=== PATIENT | female | born 1990 | race Caucasian/White ===

== ENCOUNTER 2018-02-01 22:11 | Emergency (ER) | payer OTHER ==
[2018-02-01 22:23] VITALS: BP 134/83; PULSE 80; TEMP 98; BMI 27.4
[2018-02-02] MEDS ORDERED: SODIUM CHLORIDE 1,000 ML IV ONE (00:06)
--- NOTE | 2018-02-02 00:17 | PDOC ---
History of Present Illness - General History Source: Patient Exam Limitations: No Limitations - History of Present Illness Initial Comments: 02/02/18 00:22 The patient is a 27 year old female, with a significant past medical history of back pain (s/p epidural during labor), who presents to the emergency department with diffuse numbness and paresthesias since approximately 03:00 yesterday morning. The patient reports sudden onset of numbness and tingling in her legs bilaterally that woke her up from sleep. Patient reports her paresthesias then became diffuse. She reports some chills, but denies any headache, fever, cough, or dizziness. She denies any chest pain, shortness of breath, diaphoresis, or palpitations. She denies abdominal pain, nausea, vomiting, diarrhea, or constipation. She denies any dysuria, hematuria, frequency, or urgency. She denies any recent changes in dietary habits(no fish), outdoor travel, allergies , control use, or sick contacts. Patient reports running on the treadmill for 45 minutes 3 days ago, which is not out of the ordinary for her. Allergies: NKDA Past Surgical History: None reported Social History: Non smoker. No ETOH or recreational drug use. <Radha Harris - Last Filed: 02/02/18 00:58> <Alphonso Christensen - Last Filed: 02/02/18 02:00> - General Chief Complaint: Pain Stated Complaint: NUMBNESS Time Seen by Provider: 02/01/18 22:26 Past History <Radha Harris - Last Filed: 02/02/18 00:58> - Suicide/Smoking/Psychosocial Hx Smoking History: Never smoked Have you smoked in the past 12 months: No Information on smoking cessation initiated: No Hx Alcohol Use: No Drug/Substance Use Hx: No <Alphonso Christensen - Last Filed: 02/02/18 02:00> - Past Medical History Allergies/Adverse Reactions: Allergies Allergy/AdvReac Type Severity Reaction Status Date / Time No Known Allergies Allergy Verified 02/01/18 22:23 Review of Systems - Review of Systems Constitutional: No: Chills, Fever HEENTM: No: Recent change in vision Respiratory: No: Cough, Shortness of Breath Cardiac (ROS): No: Chest Pain, Lightheadedness ABD/GI: No: Diarrhea, Vomiting Neurological: Yes: Paresthesia. No: Headache, Weakness All Other Systems: Reviewed and Negative <Alphonso Christensen - Last Filed: 02/02/18 02:00> *Physical Exam - Vital Signs Last Vital Signs Temp Pulse Resp BP Pulse Ox 98.0 F 80 16 134/83 100 02/01/18 22:20 02/01/18 22:20 02/01/18 22:20 02/01/18 22:20 02/01/18 22:20 - Physical Exam Comments: 02/02/18 00:22 GENERAL: The patient is awake, alert, and fully oriented, in no acute distress. HEAD: Normal with no signs of trauma. EYES: Pupils equal, round and reactive to light, extraocular movements intact, sclera anicteric, conjunctiva clear with no pallor. ENT: Ears normal, nares patent, oropharynx clear without exudates. Moist mucous membranes. NECK: Normal range of motion, supple without lymphadenopathy, JVD, or masses. LUNGS: Breath sounds equal, clear to auscultation bilaterally. No wheeze/ crackles. HEART: Regular rate and rhythm, normal S1 and S2 without murmur or rub. ABDOMEN: Soft/nontender/nondistended. BS wnl. No guarding or rebound. No palpable masses. No hepatosplenomegaly. EXTREMITIES: Normal range of motion, no edema. No clubbing or cyanosis. No cords, erythema, or tenderness. NEUROLOGICAL: Mental status: The patient is alert and oriented x3. Cranial nerves: Cranial nerves II through XII are intact Motor: The upper extremities are 5 over 5 in all muscle groups. The lower extremities are 5 over 5 in all muscle groups. No pronator drift. Sensation: Sensation is intact to light touch throughout. Cerebellar: Gktbdp-[id number]-fufg is normal in both upper extremities. Heel-knee- quick is normal in both lower extremities. Reflexes: 2+ and symmetric in the upper and lower extremities. Gait: Normal. Heel and toe walking are normal. Tandem gait is normal. PSYCH: Normal mood, normal affect. SKIN: Warm, Dry, normal turgor, no rashes or lesions noted. <Harris,Giomilsy - Last Filed: 02/02/18 00:58> - Vital Signs Last Vital Signs Temp Pulse Resp BP Pulse Ox 98.0 F 80 16 134/83 100 02/01/18 22:20 02/01/18 22:20 02/01/18 22:20 02/01/18 22:20 02/01/18 22:20 <Alphonso Christensen - Last Filed: 02/02/18 02:00> ED Treatment Course - LABORATORY CBC & Chemistry Diagram: 02/02/18 00:56 02/02/18 00:56 <Alphonso Christensen - Last Filed: 02/02/18 02:00> Medical Decision Making - Medical Decision Making 02/02/18 00:16 A portion of this note was documented by scribe services under my direction. I have reviewed the details of the note, within reason, and agree with the documentation with the following case summary and management plan written by me. Healthy 27-year-old female with no severe past medical or surgical history presents with nonspecific paresthesias to her entire body for 24 hours. Patient states she was awoken from sleep with paresthesias to her legs, persistent since then with some hyperesthesias in the numbing/tingling sensation. No weakness, but the paresthesias then became diffuse including her arms and entire body. Denies acute headache with these symptoms, denies any visual disturbance, denies speech disturbance. No history of similar symptoms, denies any recent travel but bites, denies eating any fish recently, denies any ALLERGIES. No smoking, drinking, drugs. Of note, patient did have a running worked out 3 days ago. Vital signs normal. Well-appearing, asleep and comfortable on stretcher, speaking full sentences NEURO: Mental status: The patient is alert and oriented x3. Cranial nerves: Cranial nerves II through XII are intact Motor: The upper extremities are 5 over 5 in all muscle groups. The lower extremities are 5 over 5 in all muscle groups. No pronator drift. Sensation: Sensation is intact to light touch throughout. Cerebellar: Atopzi-aupukq-[id number] is normal in both upper extremities. Heel-knee- quick is normal in both lower extremities. Reflexes: 2+ and symmetric in the upper and lower extremities. Gait: Normal. Heel and toe walking are normal. Tandem gait is normal. 27-year-old female with nonspecific whole-body paresthesias in no specific dermatomal pattern. Presentation does not seem consistent with central or peripheral nerve process, motor completely intact. Question electrolyte abnormality, rule out rhabdomyolysis from the recent exercise, will check TSH. Labs, urinalysis IV fluids Reassess. If above is negative, will give neuro referral. In this age group, question atypical presentation of MS, but no red flags on history or physical exam to suggest emergent workup at this time. 02/02/18 01:53 CBC and chemistries are within normal limits, CK slightly elevated at 208, creatinine normal, urine with some blood but active menses. Pt feels much improved after fluids, occasional muscle twitch in her L leg. discussed findings, agrees with d/c plan and f/u with neurology if needed. understands return criteria between now and then. ambulating comfortably, texting on her cell phone. <Alphonso Christensen - Last Filed: 02/02/18 02:00> *DC/Admit/Observation/Transfer - Attestations Scribe Attestion: 02/02/18 00:22 Documentation prepared by Radha Harris, acting as registered medical transcriptionist for Alphonso Christensen MD. <Radha Harris - Last Filed: 02/02/18 00:58> <Alphosno Christensen - Last Filed: 02/02/18 02:00> Diagnosis at time of Disposition: Paresthesias - Discharge Dispostion Disposition: HOME Condition at time of disposition: Improved - Referrals Referrals: Chad Alvarenga MD [Staff Physician] - - Patient Instructions Printed Discharge Instructions: DI for Numbness/tingling, DI for Muscle Strain Additional Instructions: Activity as tolerated. Stay hydrated. Tylenol 1000 mg every 8 hours and/or ibuprofen 600 mg every 8 hours as needed for pain. Blood tests showed no abnormalities other than a bit of muscle breakdown, which can be relieved with staying well-hydrated. Your symptoms could be due to this muscle strain/breakdown but could also be nerve related. The symptoms may resolve over the next few days, if not you should see a neurologist and her primary doctor. You should follow up with your primary doctor and a neurologist (consider calling Dr. Alvarenga) as soon as possible regarding today's emergency department visit. Return to the emergency department for any new or concerning symptoms, particularly persistent or worsening pain, numbness or weakness, bowel or bladder issues, fevers or chills, swelling or rash.
[2018-02-02 01:17] LABS: URINE APPEARANCE CLOUDY; URINE BILIRUBIN NEGATIVE (NEGATIVE); URINE BLOOD 3+ (NEGATIVE); URINE COLOR YELLOW; URINE GLUCOSE (UA) NEGATIVE (NEGATIVE); URINE KETONE TRACE (NEGATIVE); URINE LEUK ESTERASE TRACE (NEGATIVE); URINE NITRITE NEGATIVE (NEGATIVE); URINE UROBILINOGEN NEGATIVE mg/dL (0.2-1.0)
[2018-02-02 01:18] LABS: BASO % 0.5 % (0-2.0); EOS % 2.8 % (0-4.5); HEMATOCRIT 40.4 % (32.4-45.2); HEMOGLOBIN 13.6 GM/dL (10.7-15.3); LYMPH % 38.5 % (8-40); MCH 29.9 pg (25.7-33.7); MCHC 33.6 g/dl (32.0-36.0); MEAN PLT VOLUME 8.7 fl (7.5-11.1); MONO % 8.8 % (3.8-10.2); NEUT % 49.4 % (42.8-82.8); PLATELET COUNT 300 K/MM3 (134-434); RBC 4.54 M/mm3 (3.60-5.2); RDW 13.5 % (11.6-15.6); WHITE BLOOD COUNT 6.9 K/mm3 (4.0-10.0)
[2018-02-02 01:20] LABS: HCG,QUALITATIVE URINE NEGATIVE; URINE PROTEIN 1+ (NEGATIVE)
[2018-02-02 01:43] LABS: ALBUMIN 4.7 g/dl (3.4-5.0); ALK PHOS 72 U/L (45-117); ANION GAP 10 (8-16); BILIRUBIN,TOTAL 0.3 mg/dL (0.2-1.0); BLOOD UREA NITROGEN 16 mg/dL (7-18); CALCIUM 9.2 mg/dL (8.5-10.1); CHLORIDE 106 mmol/L (98-107); CO2 26 mmol/L (21-32); CREATININE 0.6 mg/dL (0.55-1.02); GLUCOSE,RANDOM 101 mg/dL (74-106); SGPT/ALT 21 U/L (12-78); SODIUM 142 mmol/L (136-145); TOT PROT 8.4 g/dl (6.4-8.2)
[2018-02-02 01:44] LABS: MAGNESIUM 2.4 mg/dL (1.8-2.4); POTASSIUM 4.3 mmol/L (3.5-5.1); SGOT/AST 22 U/L (15-37)
[2018-02-02] MEDS ORDERED: KETOROLAC TROMETHAMINE 30 MG/1 ML VIAL IVPUSH ONE (01:53)
[2018-02-02] MEDS ORDERED: KETOROLAC TROMETHAMINE 30 MG/1 ML VIAL ONE (01:58)
[2018-02-02 02:23] LABS: EPI CELLS RARE /HPF (FEW); URINE MUCUS RARE
== END 2018-02-02 02:15 | disposition home or self-care (01) ==
LOC: JER 22:11
DX: R20.0 Anesthesia of skin (principal)
CPT/HCPCS: 36415; 80053; 81003; 81015; 82550; 82553; 83735; 84443; 84703; 85025; 99281-25; J7030